=== PATIENT | male | born 1980 | race Caucasian/White ===

== ENCOUNTER 2023-12-15 14:11 | Emergency (ER) | payer OTHER, SELFPAY ==
[2023-12-15 14:13] VITALS: BP 131/85
[2023-12-15 14:43] LABS: % Basophils 0.6 % (0-2); % Eosinophils 3.5 % (0-6); % Immature Granulocytes 0.2 % (0-0.5); % Lymphocytes 34.5 % (20.5-51.1); % Monocytes 7.5 % (1.7-9.3); % Neutrophils 53.7 % (42.2-75.2); Absolute Eosinophils 0.2 10^3/uL (0-0.7); Absolute Lymphocytes 1.9 10^3/uL (1.2-3.4); Absolute Monocytes 0.4 10^3/uL (0.1-0.6); Absolute Neutrophils 2.9 10^3/uL (1.4-6.5); Hematocrit 41.3 % (39.0-52.0); Hemoglobin 14.6 g/dL (13.0-18.0); Mean Corp Hgb Conc. 35.4 g/dL (33.0-37.0); Mean Corpuscular Hgb 32.4 pg (27.0-31.0); Mean Corpuscular Volume 91.8 fL (80.0-94.0); Mean Platelet Volume 9.4 fL (7.4-10.4); Nucleated Red Blood Cells % 0 % (-); Platelet Count 349 10^3/uL (130-400); Red Cell Dist. Width 11.7 % (11.5-14.5); White Blood Cell Count 5.5 10^3/uL (4.8-10.8)
[2023-12-15 15:01] LABS: ALT (SGPT) 28 U/L (0-50); AST (SGOT) 30 U/L (17-59); Albumin 4.5 g/dl (3.5-5.0); Alkaline Phosphatase 62 U/L (38-126); Blood Urea Nitrogen 23 mg/dl (9-20); Calcium 9.8 mg/dl (8.4-10.2); Carbon Dioxide 25 mmol/L (22-30); Chloride 107 mmol/L (98-107); Glucose 85 mg/dl (70-99); Potassium 4.6 mmol/L (3.5-5.1); Sodium 140 mmol/L (135-145); Total Bilirubin 0.8 mg/dl (0.2-1.3); Total Protein 6.8 g/dl (6.3-8.2); eGFR > 60.00
--- NOTE | 2023-12-15 16:03 | ED.GENMED ---
History of Present Illness
General
Chief Complaint: Dizziness
Source: patient
Time Seen by Provider: 12/15/23 15:29
History of Present Illness
History of Present Illness:
43yoM with a history of hyperlipidemia presenting with his significant other for evaluation of dizziness. Symptoms began this morning when he woke up from sleep. He stood up to get out of bed when he felt a 'woozy' sensation that felt like his
equilibrium was off and he was unsteady on his feet. He states it felt like it took his head 1-2 seconds to catch up with his body. He has been having intermittent symptoms throughout the day primarily with position changes and ambulation. He denies
any symptoms at rest. He denies any visual changes, weakness, headache, ear pain, tinnitus. Of note, patient had a URI about 10 days ago.
Phy Exam
General Physical Exam
General Presentation: well appearing and no apparent distress
General age: appears stated age
General Skin: warm and dry
General Habitus: normal
General Mental: alert
ENT Exam
ENT Exam: TM's normal
Eye Exam
Eye Exam: PERRL and EOMI
Cardiovascular Exam
Cardiovascular Exam: regular rate/rhythm and no edema
Pulmonary Exam
Pulmonary Exam: lungs clear, no respiratory distress, no crackles and no wheezing
Neurological Exam
Neurological Exam: alert, no motor deficits, speech normal and other (CN 2-12 grossly intact. 5/5 strength in all extremities. Negative drift x4. Normal finger to nose and heel to quesada bilaterally. Negative Romberg. Mild difficulty with tandem gait.
)
Dhruv Coma Scale
Eye Opening: Spontaneous
Verbal Response: Oriented
Motor Response: Obeys Commands
GCS Total Score: 15
Skin Exam
Skin Exam: normal color and warm/dry
Psychiatric Exam
Psychiatric Exam: normal mood/affect
Course
Orders/Labs/Results
Orders:
Orders
12/15/23 14:17
Electrocardiogram (*1) Urgent
Reason for Study: Vertigo / Dizzy
EKG- Treatment ONCE
12/15/23 14:25
CMP [Comprehensive Metabolic Panel] Urgent
Complete Blood Count/With Diff Urgent
12/15/23 16:03
CT Head W/o Iv Contrast Urgent
Comment:
Reason For Exam: Dizziness
Meclizine [Antivert] 25 mg PO NOW STA
12/15/23 18:21
Amoxicillin 875 mg/Clav 125 mg [Augmentin 875 mg/125 mg] 1 tablet PO NOW STA
Abnormal Lab Results
12/15/23
14:25
RBC 4.50 L 10^6/uL
(4.70-6.10)
MCH 32.4 H pg
(27.0-31.0)
BUN 23 H mg/dl
(9-20)
12/15/23 14:25
12/15/23 14:25
Vital Signs
Initial and Last Documented VS:
Initial Vital Signs
Temp Pulse Resp BP Pulse Ox
98.1 F 81 16 131/85 99
12/15/23 14:13 12/15/23 14:13 12/15/23 14:13 12/15/23 14:13 12/15/23 14:13
Last Documented Vital Signs
Temp Pulse Resp BP Pulse Ox
98.1 F 68 19 121/81 99
12/15/23 14:13 12/15/23 17:00 12/15/23 17:00 12/15/23 18:28 12/15/23 17:00
MDM/Problems Addressed
Differential Diagnosis Includes:
43yoM here with dizziness that began this morning. Described as unsteadiness and feeling like equilibrium is off. Recent URI 10 days ago. He is afebrile and hemodynamically stable. He is well appearing in no distress. He has mild difficulty with
tandem gait. Romberg test is negative and no ataxia present with finger to nose or heel to quesada. Differential diagnosis includes but is not limited to: Vestibular neuronitis, labyrinthitis, BPPV, M�ni�re's, doubt CVA
Initial ED plan: Basic labs sent in triage which are unremarkable. EKG shows normal sinus rhythm without ischemic changes. Will obtain CT head and trial meclizine.
*EKG
Interpreted by ED Provider?: Yes
EKG Intrepretation Date: 12/15/23
Heart Rate: 71
Rate: normal
Rhythm: sinus
Jackson: normal axis
Interval: normal interval
QRS Pattern: normal QRS
Ischemia: no ischemia
*Critical Care Note
Total Time (30-74mins, 75-104mins- exclusive of procedures): Not Applicable
Update Note
Update Note:
CT head is negative for acute intracranial abnormalities. There is evidence of possible sinusitis on imaging. Upon questioning, patient does report sinus pressure. Symptoms improved with meclizine and he was able to ambulate to the bathroom
independently. He is stable for discharge. Will prescribe Augmentin to cover for sinusitis. Prescription also provided for meclizine and he was advised to use Flonase daily. Advised close PCP f/u and ED return precautions discussed. He expressed
understanding and is agreeable to plan. Patient discharged in stable condition.
ED Attending Note
-
Portions of this chart may have been created with voice recognition software.� Occasional wrong word or��sound alike� substitutions may have occurred due to the inherent limitations of voice recognition software.
Discharge Plan
Departure
Patient Disposition: Home (Routine Discharge)
Date of Disposition: 12/15/23
Time of Disposition: 18:20
Patient with high blood pressure during this ER visit?: No
Discharge Problem:
Dizziness, Sinusitis
Instructions: Dizziness
Prescriptions:
New
amoxicillin-pot clavulanate 875-125 mg tablet
1 tab PO BID Qty: 13 0RF
meclizine 25 mg tablet
25 mg PO QID PRN (Reason: dizziness) Qty: 20 0RF
Referrals:
Teo Au PA [Family Provider] -
Activity Restrictions/Additional Instructions:
Take antibiotics as prescribed. Use Flonase nasal spray daily. Take meclizine as needed for dizziness.
Please follow-up with your family doctor. Return to the ER with any new or worsening symptoms.
Interventions
Interventions:
*Risk Screen - Suicide Last Done: 12/15/23 15:11
*General Assessment Last Done: 12/15/23 14:13
*Neglect/Abuse Screening Last Done: 12/15/23 15:11
ED- Fall Risk Assessment Last Done: 12/15/23 18:28
*ED COVID-19 Vaccine History Last Done: 12/15/23 14:13
*Nursing Disposition Last Done: 12/15/23 18:28
ED- Neurological Assessment Last Done: 12/15/23 15:11
ED- Cardiac Assessment Last Done: 12/15/23 18:28
ED Swallowing Screen Last Done: 12/15/23 15:12
Discharge Date and Time
Discharge Date/Time: 12/15/23 18:27
Print Language: CROATIAN
[2023-12-15 16:07] VITALS: BMI 23.5
[2023-12-15] MEDS: ANTIVERT 25 MG PO (16:07)
[2023-12-15 16:10] VITALS: BP 111/84
[2023-12-15 17:00] VITALS: BP 125/85
[2023-12-15] MEDS: AUGMENTIN 875 MG/125 MG 1 TABLET PO (18:25)
[2023-12-15 18:28] VITALS: BP 121/81
== END 2023-12-15 18:27 | disposition home or self-care (01) ==
LOC: EMR 14:11
PROVIDERS: Emergency Medicine; EMERGENCY PHYSICIAN Emergency Medicine; FAMILY PHYSICIAN Physician Assistant Medical
DX: R42 Dizziness and giddiness (principal); J32.9 Chronic sinusitis, unspecified; E78.00 Pure hypercholesterolemia, unspecified
CPT/HCPCS: 99284; 70450; 80053; 85025; 93005